=== PATIENT | female | born 1985 | race Two or more races ===

== ENCOUNTER → 2024-09-03 | Outpatient (CLI) | payer BC ==
[2024-09-03 09:57] LABS: Urine Bacteria None Seen /hpf (None Seen)
[2024-09-03 10:19] LABS: Creatinine, Urine 198.74 mg/dL (30.0-125.0)
[2024-09-03 10:30] LABS: Basophils # (auto) 0 10 ^3/uL (0-0.2)
[2024-09-03 10:32] LABS: Basophils % (auto) 0.6 % (0.0-2.0); Eosinophils # (auto) 0 10 ^3/uL (0-0.8); Eosinophils % (auto) 0.6 % (0.0-7.0); Hematocrit 42.6 % (36.0-46.0); Hemoglobin 15.2 g/dL (12.2-16.2); Lymphocytes # (auto) 2.4 10 ^3/uL (0.4-5.4); Lymphocytes % (auto) 29.8 % (10.0-50.0); Mean Corpuscular Hgb Conc. 35.6 g/dL (32.0-36.0); Mean Corpuscular Volume 98.4 fL (80.0-100.0); Monocytes # (auto) 0.5 10 ^3/uL (0-1.3); Monocytes % (auto) 6.4 % (0.0-12.0); Neutrophils % (auto) 62.6 % (37.0-80.0); Platelet Count (auto) 397 10^3/uL (140-450); Red Blood Cells 4.33 10^6/uL (4.0-5.20); Red Cell Distribution Width 12.9 % (11.8-14.3)
[2024-09-03 10:33] LABS: Urine Blood TRACE /uL (Negative); Urine Clarity Clear (Clear); Urine Color Yellow (Yellow); Urine Mucus FEW (None Seen); Urine Protein, UAD Negative (Negative); Urine Specific Gravity 1.027 (1.001-1.035); Urine Squamous Epithelial Cell FEW /hpf (<5); Urine Urobilinogen Normal (Negative); Urine WBC 1 /hpf (0 - 5); Urine pH 5.5 (5.0-9.0)
[2024-09-03 11:17] LABS: Alanine Aminotransferase 19 U/L (7-40); Albumin 4.7 g/dL (3.2-4.8); Alkaline Phosphatase 73 U/L (46-116); Anion Gap 7 (5-15); Aspartate Aminotransferase 18 U/L (13-40); BUN/Creatinine Ratio 15.3 (10.0-20.0); Bilirubin, Total 0.5 mg/dL (0.2-1.0); Blood Urea Nitrogen 11 mg/dL (9-23); Calcium 9.9 mg/dL (8.7-10.4); Carbon Dioxide 27 mmol/L (20-31); Chloride 104 mmol/L (98-107); Cholesterol 181 mg/dL (< 200); Glucose 82 mg/dL (74-106); HDL Cholesterol 55 mg/dL (40-59); Potassium 4.1 mmol/L (3.5-5.1); Sodium 138 mmol/L (136-145); Total Protein 7.4 g/dL (5.7-8.2); Triglycerides 68 mg/dL (< 150)
[2024-09-03 11:19] LABS: LDL Cholesterol 124 mg/dL (< 100)
== END | disposition home or self-care (01) ==
LOC: LAB 09:39
PROVIDERS: ATTEND Internal Medicine
DX: Z00.00 Encounter for general adult medical examination without abnormal findings (principal); R73.03 Prediabetes
CPT/HCPCS: 36415; 80053; 80061; 81001; 82043; 82570; 83036; 84443; 85025

== ENCOUNTER 2025-01-29 11:28 | Outpatient (CLI) | payer BC | END 2025-01-29 17:00 | disposition home or self-care (01) | LOC: LAB 11:28 | DX: Z34.00 Encounter for supervision of normal first pregnancy, unspecified trimester (principal); Z3A.00 Weeks of gestation of pregnancy not specified | CPT/HCPCS: 36415; 84144; 84702 ==

== ENCOUNTER 2025-02-02 08:38 | Outpatient (CLI) | payer BC | END 2025-02-02 17:00 | disposition home or self-care (01) | LOC: LAB 08:38 | DX: Z34.80 Encounter for supervision of other normal pregnancy, unspecified trimester (principal); Z3A.00 Weeks of gestation of pregnancy not specified | CPT/HCPCS: 36415; 84144; 84702 ==

== ENCOUNTER 2025-02-06 10:58 | Outpatient (CLI) | payer BC ==
[2025-02-06 11:23] LABS: Basophils # (auto) 0.1 10 ^3/uL (0-0.2); Basophils % (auto) 0.9 % (0.0-2.0); Eosinophils # (auto) 0.1 10 ^3/uL (0-0.8); Eosinophils % (auto) 1.3 % (0.0-7.0); Hemoglobin 14.1 g/dL (12.2-16.2); Lymphocytes # (auto) 2.3 10 ^3/uL (0.4-5.4); Lymphocytes % (auto) 22.8 % (10.0-50.0); Mean Corpuscular Hemoglobin 34.7 pg (28.0-32.0); Mean Corpuscular Hgb Conc. 35.3 g/dL (32.0-36.0); Mean Corpuscular Volume 98.2 fL (80.0-100.0); Monocytes # (auto) 0.7 10 ^3/uL (0-1.3); Monocytes % (auto) 7.1 % (0.0-12.0); Neutrophils # (auto) 6.8 10 ^3/uL (1.6-8.6); Neutrophils % (auto) 67.9 % (37.0-80.0); Nucleated Red Blood Cells % 0.1 %; Platelet Count (auto) 350 10^3/uL (140-450); Red Blood Cells 4.08 10^6/uL (4.0-5.20); Red Cell Distribution Width 13.2 % (11.8-14.3); White Blood Cell 10.1 10^3/uL (4.4-10.8)
[2025-02-06 12:08] LABS: Alanine Aminotransferase 16 U/L (7-40); Albumin 4.6 g/dL (3.2-4.8); Alkaline Phosphatase 61 U/L (46-116); Amphetamine Screen, Urine Neg (NEGATIVE); Anion Gap 10 (5-15); Aspartate Aminotransferase 14 U/L (<34); BUN/Creatinine Ratio 19.3 (10.0-20.0); Barbiturate Scree,Urine Neg (NEGATIVE); Benzodiazephine Screen, Urine Neg (NEGATIVE); Bilirubin, Total 0.4 mg/dL (0.2-1.0); Blood Urea Nitrogen 11 mg/dL (9-23); Cannabinoid Screen, Urine Neg (NEGATIVE); Carbon Dioxide 23 mmol/L (20-31); Cocaine Screen, Urine Neg (NEGATIVE); Glucose 90 mg/dL (74-106); Opiate Scree,Urine Neg (NEGATIVE); Phencyclidine Screen, Urine Neg (NEGATIVE); Potassium 3.9 mmol/L (3.5-5.1); Sodium 140 mmol/L (136-145)
[2025-02-06 12:11] LABS: Free T3 2.98 pg/mL (2.3-4.2); Thyroid Stimulating Hormone 2.58 uIU/mL (0.55-4.78)
[2025-02-06 12:12] LABS: Chloride 107 mmol/L (98-107); Free T4 (Free Thyroxine) 1.01 ng/dL (0.89-1.76)
[2025-02-07 07:06] LABS: Varicella Zoster IgG Antibody Reactive (Non Reactive)
[2025-02-08 10:07] LABS: Chlamydia Trachomatis, NAA Negative (Negative); Neisseria gonorrhoeae, NAA Negative (Negative)
== END 2025-02-06 17:00 | disposition home or self-care (01) ==
LOC: LAB 10:58
DX: Z34.00 Encounter for supervision of normal first pregnancy, unspecified trimester (principal); Z3A.00 Weeks of gestation of pregnancy not specified
CPT/HCPCS: 36415; 80053; 80307; 83036; 84439; 84443; 84481; 84702; 85025; 86703; 86706; 86762; 86780; 86787; 86850; 86900; 86901; 87902

== ENCOUNTER → 2025-02-26 | Outpatient (CLI) | payer BC | END | disposition home or self-care (01) | LOC: LAB 10:52 | DX: Z34.80 Encounter for supervision of other normal pregnancy, unspecified trimester (principal); Z3A.00 Weeks of gestation of pregnancy not specified | CPT/HCPCS: 36415; 83036; 87086 ==

== ENCOUNTER 2025-06-27 18:08 | Observation (INO) | payer BC ==
[~2025-06-27] VITALS: Ht 154.9 cm; Wt 89.4 kg
[2025-06-27] MEDS ORDERED: PREN-96 PO (19:56)
--- NOTE | 2025-06-27 20:16 | DVHDS2 ---
Physician Discharge Progress N Final Diagnosis: Stable condition Problems List: (1) 26 weeks gestation of (2) Decreased movement (3) GDM (gestational diabetes mellitus), class A1 (4) AMA (advanced maternal age) primigravida 35+ Commentary: Commentary Triage Decreased Movement Subjective Patient 40y/o (0,0,0,0) 26w3d LMP 11/24/2024 [place] 09/30/2025 Reported that she traveled via care from [place] today Was in [place] for three days and reported decreased movement Recently diagnosed with GDM A1 in Objective Laboratory Tests Test 06/27/25 19:22 Range/Units POC Glucose 74 70-106 mg/dl Imaging Results OB ULTRASOUND, LIMITED CLINICAL INDICATION: SHERIF/ MVP TECHNIQUE: Multiple grayscale ultrasound and M-mode images were obtained of the pelvis for evaluation of intrauterine . COMPARISON: None FINDINGS: A single living fetus is seen in cephalic presentation. Placenta: Anterior grade 2. Amniotic fluid: Visibly normal. heart rate: 155 beats/min. A complete anatomic survey was not performed on this exam. Cervical length is 5.5 cm and fluid-filled with possible funneling IMPRESSION: 1. Cervix is Fluid-filled with possible funneling. 2. Single living intrauterine . ATED BY: TAI LAW MD DICTATED DATE/TIME: 06/27/252049 SIGNED BY: TAI LAW MD SIGNED DATE/TIME: 06/27/252049 A&O x3 Appears uncomfortable with movement. No CVA tenderness Abdomen palpated soft and non tender EFM FHR baseline 145 bpm mod variability 10 bpm X 10 bpm appropriate for gestational age Accelerations present, no deceleration Tocometer: No UCs Assessment/Plan Decreased movement P.O hydration EFM for assessment Regular diet urine dip 1.005 post hydration Imaging reported Cervical length 5.5 cm Fluid filled with some possible funneling Reports of good movement Plan Discharge patient to home in stable condition Has scheduled appointment with [facility] 06/29 Education of PTL/FKC/Pre-E precautions. Condition on Discharge: Stable Disposition: Home Discharge Instructions: Diet: Regular Activity: No Restrictions, As Tolerated Follow Up/Referral: Scheduled appt 06/29 Medications: PNV Follow Up Care: Discharge Statement: kick counts and Preeclampsia warning signs reviewed. PTL precautions given and when to return to the hospital. Discharge Care Plan Problem Pain, Risk for injury/Safety, Increase in fluid intake Goals Pain relieved Know Disease Process Initiate lifestyle change Adequate fluid volume Adequate fluid volume Skin remains intact Remain free of infection To perform ADL's w/ help Instructions Take Rx medications, Notify MD of any issues, Keep list of meds w/ you See pt D/C handouts Risk factors Visit Coding OBGYN Date of Service: Jun 27, 2025 Billing Provider: RAMO RAHMAN CNM [employer] Common Visit Codes: [id number] OBS CARE (MOD) RAMO RAHMAN CNMNov 2024 20:16
--- NOTE | 2025-06-27 20:53 | DVH ---
OB ULTRASOUND, LIMITED CLINICAL INDICATION: SHERIF/ MVP TECHNIQUE: Multiple grayscale ultrasound and M-mode images were obtained of the pelvis for evaluation of intrauterine . COMPARISON: None FINDINGS: A single living fetus is seen in cephalic presentation. Placenta: Anterior grade 2. Amniotic fluid: Visibly normal. heart rate: 155 beats/min. A complete anatomic survey was not performed on this exam. Cervical length is 5.5 cm and fluid-filled with possible funneling IMPRESSION: 1. Cervix is Fluid-filled with possible funneling. 2. Single living intrauterine .
[2025-06-27] MEDS ORDERED: ASPI-543 PO (21:12)
== END 2025-06-27 21:32 | disposition home or self-care (01) ==
LOC: LDRP 18:08
PROVIDERS: ADMIT Obstetrics & Gynecology; ATTEND Obstetrics & Gynecology
DX: O36.8120 Decreased fetal movements, second trimester, not applicable or unspecified (principal); O09.512 Supervision of elderly primigravida, second trimester; O24.410 Gestational diabetes mellitus in pregnancy, diet controlled; Z3A.26 26 weeks gestation of pregnancy; Z79.899 Other long term (current) drug therapy; Z98.890 Other specified postprocedural states
CPT/HCPCS: 76815; 76817; 81002; 82948; 82962; 94760; G0378; 59025